=== PATIENT | female | born 1945 | race Caucasian/White ===

== ENCOUNTER 2023-12-31 10:54 | Outpatient (CLI) | payer OTHER | END 2023-12-31 19:25 | disposition home or self-care (01) | LOC: SCT 10:54 | PROVIDERS: ATTEND Orthopaedic Surgery | DX: M17.12 Unilateral primary osteoarthritis, left knee (principal) ==

== ENCOUNTER 2024-01-10 06:23 | Day surgery (SDC) | payer OTHER ==
[~2024-01-10] VITALS: Ht 152.4 cm; Wt 64.9 kg
[2024-01-10] MEDS ORDERED: ACETAMINOPHEN 500 MG TABLET ONE (06:43)
[2024-01-10] MEDS ORDERED: CEFAZOLIN SOD 2 GM in D5W 50 ML IV ONE (07:00)
[2024-01-10] MEDS: ACETAMINOPHEN 500 MG TABLET PO ONE (07:15)
[2024-01-10] MEDS: VANCOMYCIN HCL 1,000 MG in NS 250 ML IV ONE (07:30)
[2024-01-10] MEDS ORDERED: PROPOFOL DRIP 100 ML IV ONE (07:53)
[2024-01-10] MEDS ORDERED: TRANEXAMIC ACID 1,000 MG/10 ML VIAL ONE (07:58)
[2024-01-10] MEDS ORDERED: NS IRRIG SOLN 1000 ML IR ONE (07:58)
[2024-01-10] MEDS ORDERED: LR 1,000 ML IV.SOLN IV ONE (07:58)
[2024-01-10] MEDS ORDERED: BUPIVACAINE /EPINEPHRINE/PF 0.25% 30 ML VIAL ONE (07:58)
[2024-01-10] MEDS ORDERED: NS 500 ML IV.SOLN IV ONE (07:58)
[2024-01-10] MEDS ORDERED: ONDANSETRON HCL 4 MG/2 ML VIAL ONE (07:58)
[2024-01-10 08:05] VITALS: PULSE 71; RESP 18; TEMP 97.6; O2SAT 95
[2024-01-10] MEDS ORDERED: fentaNYL CITRATE/PF 100 MCG/2 ML AMP IVP PRN (09:00)
[2024-01-10] MEDS ORDERED: LR 1,000 ML IV ONE (09:00)
[2024-01-10] MEDS ORDERED: ONDANSETRON HCL 4 MG/2 ML VIAL IVP PRN ×2 (09:00→11:45)
[2024-01-10] MEDS ORDERED: oxyCODONE HCL 5 MG TABLET PO PRN ×2 (11:00)
[2024-01-10] MEDS ORDERED: LORATADINE 10 MG TABLET PO PRN (11:00)
[2024-01-10] MEDS ORDERED: traMADol HCL HCL 50 MG TABLET (ULTRAM) PO PRN (11:00)
[2024-01-10] MEDS ORDERED: HYDROmorphone 1 MG/ML INJ. CARTRIDGE IVP PRN ×3 (11:00)
[2024-01-10 11:09] VITALS: BP_SYST 145
[2024-01-10] MEDS ORDERED: BISACODYL 10 MG/SUPPOSITORY RC PRN (11:15)
[2024-01-10] MEDS ORDERED: LACTULOSE 20 GM/30 ML UDC PO PRN (11:15)
[2024-01-10] MEDS ORDERED: METOCLOPRAMIDE HCL 10 MG/2 ML VIAL IVP PRN (11:15)
[2024-01-10] MEDS ORDERED: DIPHENHYDRAMINE HCL 25 MG CAPSULE PO PRN (11:15)
[2024-01-10] MEDS: HYDROmorphone 1 MG/ML INJ. CARTRIDGE IVP PRN (11:18)
[2024-01-10] MEDS ORDERED: HYDROmorphone 1 MG/ML INJ. CARTRIDGE ONE (11:18)
[2024-01-10] MEDS ORDERED: CLINDAMYCIN 600 mg/50mL D5W 50 ML IV ONE (12:00)
[2024-01-10] MEDS ORDERED: CLINDAMYCIN 600 MG in D5W 50 ML IV SCH (12:00)
[2024-01-10] MEDS ORDERED: TAMSULOSIN HCL 0.4 MG CAP PO ONE (12:15)
[2024-01-10] MEDS: fentaNYL CITRATE/PF 100 MCG/2 ML AMP IVP PRN (13:30)
[2024-01-10] MEDS ORDERED: fentaNYL CITRATE/PF 100 MCG/2 ML AMP ONE (13:31)
[2024-01-10] MEDS ORDERED: ACETAMINOPHEN 500 MG TABLET PO SCH (14:00)
[2024-01-10] MEDS: METOCLOPRAMIDE HCL 10 MG/2 ML VIAL ONE (14:10)
[2024-01-10] MEDS ORDERED: CLINDAMYCIN 600 mg/50mL D5W 50 ML IV SCH (18:00)
[2024-01-10] MEDS ORDERED: SENNOSIDES/DOCUSATE SODIUM 1 TAB TABLET(SENOKOT-S) PO SCH (21:00)
[2024-01-11] MEDS ORDERED: ASPIRIN 81 MG TAB.CHEW PO SCH (09:00)
[2024-01-11] MEDS ORDERED: TAMSULOSIN HCL 0.4 MG CAP PO SCH (09:00)
== END 2024-01-10 15:15 | disposition home or self-care (01) ==
LOC: SDS 06:23 → SMU 06:23 → SDS 15:15
PROVIDERS: ATTEND Orthopaedic Surgery
DX: M17.12 Unilateral primary osteoarthritis, left knee (principal); M25.762 Osteophyte, left knee; M25.562 Pain in left knee; I10 Essential (primary) hypertension; E11.9 Type 2 diabetes mellitus without complications; K21.9 Gastro-esophageal reflux disease without esophagitis; E78.5 Hyperlipidemia, unspecified; G89.18 Other acute postprocedural pain; Z79.82 Long term (current) use of aspirin; Z79.84 Long term (current) use of oral hypoglycemic drugs; Z79.899 Other long term (current) drug therapy; Z88.0 Allergy status to penicillin; Z88.5 Allergy status to narcotic agent; Z88.8 Allergy status to other drugs, medicaments and biological substances; Z83.3 Family history of diabetes mellitus; Z80.1 Family history of malignant neoplasm of trachea, bronchus and lung
CPT/HCPCS: 27447; 97162; 73560; 97530; 97110; 97116; 82948; 88305; 88311; 64447; J3490 ×3; J0690; J2765; J2405; J2704; J3370; J3010; J1170; J7060; J7120; J7050; J7040; C1776 ×4; C1713 ×3